=== PATIENT | female | born 1980 | race Caucasian/White ===

== ENCOUNTER → 2023-09-21 10:14 | Outpatient (REF) | payer OTHER, SELFPAY | LOC: HWWDC 10:14 | PROVIDERS: ATTENDING PHYSICIAN Obstetrics & Gynecology | DX: Z12.31 Encounter for screening mammogram for malignant neoplasm of breast (principal) | CPT/HCPCS: 77063; 77067 ==

== ENCOUNTER → 2024-02-02 06:14 | Day surgery (SDC) | payer OTHER, SELFPAY | LOC: GI 06:14 | PROVIDERS: ATTENDING PHYSICIAN Internal Medicine; FAMILY PHYSICIAN Student in an Organized Health Care Education/Training Program | DX: R13.10 Dysphagia, unspecified (principal); K44.9 Diaphragmatic hernia without obstruction or gangrene; K22.89 Other specified disease of esophagus; K20.0 Eosinophilic esophagitis | CPT/HCPCS: 43249; 43239; 88305; 88342 ==

== ENCOUNTER → 2024-09-26 08:35 | Outpatient (REF) | payer OTHER, SELFPAY | LOC: HWWDC 08:35 | PROVIDERS: ATTENDING PHYSICIAN Obstetrics & Gynecology; FAMILY PHYSICIAN Physician Assistant | DX: Z12.31 Encounter for screening mammogram for malignant neoplasm of breast (principal) | CPT/HCPCS: 77063; 77067 ==

== ENCOUNTER → 2025-04-24 11:55 | Outpatient (REF) | payer OTHER, SELFPAY | LOC: RAD 11:55 | PROVIDERS: ATTENDING PHYSICIAN Nurse Practitioner Adult Health; FAMILY PHYSICIAN Physician Assistant | DX: S34.109A Unspecified injury to unspecified level of lumbar spinal cord, initial encounter (principal) | CPT/HCPCS: 72110 ==